=== PATIENT | male | born 2005 | race Caucasian/White ===

== ENCOUNTER 2024-10-31 16:24 | Emergency (ER) | payer BC | END 2024-10-31 17:48 | disposition home or self-care (01) | LOC: MW.ED 16:24 | DX: S61.203A Unspecified open wound of left middle finger without damage to nail, initial encounter (principal); W27.4XXA Contact with kitchen utensil, initial encounter; Z75.8 Other problems related to medical facilities and other health care | CPT/HCPCS: 99283 ==